=== PATIENT | female | born 1990 | race Caucasian/White ===

== ENCOUNTER 2017-08-22 21:19 | Emergency (ER) | END 2017-08-23 00:50 | disposition home or self-care (01) ==

== ENCOUNTER 2017-11-27 21:12 | Emergency (ER) | END 2017-11-28 02:18 | disposition home or self-care (01) ==

== ENCOUNTER 2018-01-09 09:38 | Emergency (ER) | END 2018-01-09 12:02 | disposition home or self-care (01) ==

== ENCOUNTER 2018-03-08 11:20 | Outpatient (CLI) | payer OTHER ==
[~2018-03-08] VITALS: Ht 160 cm; Wt 82.3 kg
[~2018-03-08 11:20] MED LIST: ACET500C5 PO; ALBU18HF INHALATION; BENZ200C68 PO; FAMO-96 PO; FERR27TA; ONDA4TAB14 PO; PRED20TA PO
[2018-03-08 11:34] VITALS: BP 123/79; PULSE 100; RESP 16; Ht 160 cm; Wt 82.3 kg
[2018-03-08] MEDS ORDERED: LACTATED RINGER'S 1,000 ML IV SCH (11:37)
[2018-03-08] MEDS ORDERED: ACETAMINOPHEN 500 MG TAB PO STA (12:56)
--- NOTE | 2018-03-08 15:20 | TRIAGE ---
OB Triage Datetime Report Generated by CPN: 03/08/2018 15:19 Datetime: 03/08/2018 14:57 Labor Evaluation Pattern: Normal: <= 5 Contractions in 10 Minutes Resting Tone [place]: Relaxed Contraction Comments: no uc Heart Rate FHR Baseline Rate: 135 Monitor Mode: External US Variability: Moderate 6-25 bpm Accelerations: 15X15 Decelerations: None Category: Category I Pain Assessment Pain Presence: None/Denies Pain Type: N/A Datetime: 03/08/2018 14:01 Labor Evaluation Pattern: Normal: <= 5 Contractions in 10 Minutes Resting Tone [place]: Relaxed Contraction Comments: no uc Heart Rate FHR Baseline Rate: 135 Monitor Mode: External US Variability: Moderate 6-25 bpm Accelerations: 15X15 Decelerations: None Category: Category I Datetime: 03/08/2018 13:29 Comments: pt. back to bed Datetime: 03/08/2018 13:00 Labor Evaluation Pattern: Normal: <= 5 Contractions in 10 Minutes Resting Tone [place]: Relaxed Contraction Comments: no uc Heart Rate FHR Baseline Rate: 140 Monitor Mode: External US Variability: Moderate 6-25 bpm Accelerations: 15X15 Decelerations: None Category: Category I Datetime: 03/08/2018 12:01 Labor Evaluation Pattern: Normal: <= 5 Contractions in 10 Minutes Resting Tone [place]: Relaxed Contraction Comments: no uc Heart Rate FHR Baseline Rate: 145 Monitor Mode: External US Variability: Moderate 6-25 bpm Decelerations: None Category: Category I Datetime: 03/08/2018 11:32 Assessment Type: Triage Maternal Assessment Level of Consciousness: Fully Conscious DTR's/Clonus: DTRs 2+; No Clonus Headache: Denies Blurred Vision: No Respiratory Effort: Unlabored; Regular Rhythm; Equal Expansion Breath Sounds, Left: Clear and Equal Breath Sounds, Right: Clear and Equal Nausea/Vomiting: Denies RUQ Epigastric Pain: Denies Lower Extremities Edema: None Degree: None Upper Extremities Edema: None Degree: None Facial Edema: None Fall Risk Assessment History of Falling: (0) No Secondary Diagnosis: (0) No Ambulatory Aid: (0) Bedrest/Nurse Assist IV Therapy: (0) No Gait: (0) Normal/Bedrest/Immobile Mental Status: (0) Oriented to Own Ability Fall Score: 0 Fall Risk Score Definition: No Risk: No action required Datetime: 03/08/2018 11:24 Time of Arrival: 03/08/2018 11:17 EGA: 26.3 Arrived By: Ambulatory Arrived From: Home Chief Complaint: To triage, c/o left side of headche and RLQ cramping since last night, pain level 4/10, also c/o dizziness and nausea Movement: Present Contractions: Denies/Absent Rupture of Membranes: Denies Vaginal Bleeding: None Vaginal Discharge: Denies Recent Sexual Intercouse: Denies Abdominal Trauma: Not Applicable Patient Complaints: Cramping; Nausea; Dizziness; Other Time Provider Notified: 03/08/2018 11:36 Provider Notified: olu
--- NOTE | 2018-03-08 16:43 | PN ---
Triage Information Date/Time March 08, 2018 Reason for visit: Left-sided headache, right lower abdominal pain, dizziness, nausea Weeks of Gestation 26 weeks and 3 days /Para 2 para 1 Diabetes: none Hypertention: none Additional information 27-year-old 2 para 1 with IUP at 26 weeks and 3 days presented with left-sided headache as well as right-sided lower abdominal pain, dizziness and nausea. She denies any leaking of fluid, vaginal bleeding decreased movement or uterine contractions. She reports had episodes of left-sided headache in the past but this time has been worsened. She denies any neurolo gical symptoms. She denies any right upper quadrant pain blurred vision or epigastric pain. She denies any lack of appetite, she denies any fever or chills. Objective Vital Signs Date Temp Pulse Resp B/P (MAP) Pulse Ox O2 O2 Flow FiO2 Time Delivery Rate 03/08/18 98.2 100 16 123/79 11:34 (94) Heart Rate: 130's Heart Rate Comments NST: Category 1 Exam Appearance: Alert and oriented x4 appears to be mild distress Abdomen: Soft, gravid, fundal height consider gestational age, no tenderness, no redness, no guarding no rigidity No evidence of acute abdomen. No CVA tenderness NST: Category 1 No contraction on the monitor Results/Medications Result Diagram: 03/08/18 1210 03/08/18 1327 Results 24 hrs Laboratory Tests Test 03/08/18 11:30 03/08/18 12:10 03/08/18 13:27 Urine Color YELLOW Urine Clarity CLEAR Urine pH 6.0 Urine Specific [place] 1.018 Urine Ketones NEGATIVE Urine Nitrite NEGATIVE Urine Bilirubin NEGATIVE Urine Urobilinogen NEGATIVE Urine Leukocyte Esterase NEGATIVE Urine Hemoglobin NEGATIVE Urine Glucose NEGATIVE Urine Total Protein NEGATIVE White Blood Count 10.3 Red Blood Count 3.67 L Hemoglobin 11.2 L Hematocrit 34.1 L Mean Corpuscular Volume 92.9 Mean Corpuscular Hemoglobin 30.5 Mean Corpuscular Hemoglobin Concent 32.8 Red Cell Distribution Width 13.2 Platelet Count 119 L Mean Platelet Volume 13.2 H Immature Granulocytes % 2.000 H Neutrophils % 78.7 H Lymphocytes % 7.4 L Monocytes % 7.7 Eosinophils % 3.9 Basophils % 0.3 Nucleated Red Blood Cells % 0.0 Immature Granulocytes # 0.210 H Neutrophils # 8.1 H Lymphocytes # 0.8 Monocytes # 0.8 Eosinophils # 0.4 Basophils # 0.0 Nucleated Red Blood Cells # 0.0 Sodium Level 137 Potassium Level 3.8 Chloride Level 108 Carbon Dioxide Level 23 Anion Gap 6 Blood Urea Nitrogen 10 Creatinine 0.43 L Est Glomerular Filtrat Rate mL/min > 60 Glucose Level 83 Calcium Level 9.4 Total Bilirubin 0.4 Direct Bilirubin 0.00 Indirect Bilirubin 0.4 Aspartate Amino Transf (AST/SGOT) 21 Alanine Aminotransferase (ALT/SGPT) 16 Alkaline Phosphatase 145 H Total Protein 6.9 Albumin 3.5 Globulin 3.40 H Albumin/Globulin Ratio 1.02 Imaging Results PROCEDURE: Obstetric ultrasound CLINICAL INDICATION: Pain TECHNIQUE: Multiple transverse and longitudinal grayscale images of the pelvis were obtained transabdominally and transvaginally.. COMPARISON: US 01/23/2018 FINDINGS: The cervix is closed with a length of 4.1 cm. There is a single live intrauterine gestation. Cardiac activity is present with 139 beats per minute. There is a vertex presentation. The placenta is posterior. There is no evidence for an abruption or placenta previa. MVP = 5.8 cm. RPTAT: AA IMPRESSION: Cervix length measures 4.1 cm. Disposition: Discharge Assessment/Plan IUP at 26 and 3 days Left-sided headache likely migraine headache. Resolved with thousand milligram of p.o. Tylenol and hydration No evidence of acute abdomen UA and CBC within normal limits PH panel negative. Throat blood pressure check did not show any evidence of hypertension Symptoms resolved with above management and treatment and patient denies any symptoms after observation prior to discharge home testing reassuring Patient advised to have a follow-up with her primary OB office within 72 hours after discharge from the hospital Strict labor precautions, preeclampsia precaution, kick count discussed. Signs and symptoms explained. All questions were answered to patient's best satisfaction. Patient verbalized understanding and agrees to comply with instructions. MIGDALIA SANCHEZ MD Mar 08, 2018 16:43
== END 2018-03-08 15:30 | disposition home or self-care (01) ==
LOC: OBT 11:20 → L-D 11:21 → OBT 15:30
PROVIDERS: ATTEND Obstetrics & Gynecology
DX: O26.892 Other specified pregnancy related conditions, second trimester (principal); R51 Headache; R10.9 Unspecified abdominal pain; R42 Dizziness and giddiness; Z3A.26 26 weeks gestation of pregnancy
CPT/HCPCS: 36415; 76815; 76817; 80053; 80076; 81003; 85025; 96360; 96361; J7120; Z7500; Z7610; G0463

== ENCOUNTER 2018-04-15 16:19 | Outpatient (CLI) | payer OTHER ==
[~2018-04-15] VITALS: Ht 160 cm; Wt 85.6 kg
[2018-04-15] MEDS ORDERED: PREN-93 PO (16:32)
[2018-04-15 16:33] VITALS: BP 123/70; PULSE 83; RESP 18; Ht 160 cm; Wt 85.6 kg
[2018-04-15] MEDS ORDERED: ACETAMINOPHEN 500 MG TAB PO STA (20:25)
--- NOTE | 2018-04-15 20:38 | PN ---
Triage Information Date/Time Apr 152018 Reason for visit: Uterine contractions Weeks of Gestation 31w 6d /Para 2/1 Diabetes: none Hypertention: none Additional information Pt was here this AM feeling the same way with UC's and was sent home. She comes back in with c/o pain 06/06. It is the same as this AM, not any worse. She says she does not feel it all the time but only when walking. Since she has been laying in the bed since arrival she has felt very comfortable. She takes Tylenol which helps. She does report good movement. No bleeding or leaking. PMHx: none. PSHx: x 1. All: PCN. Objective Vital Signs Date Temp Pulse Resp B/P (MAP) Pulse Ox O2 O2 Flow FiO2 Time Delivery Rate 04/15/18 98.2 83 18 123/70 Room Air 16:33 (87) Heart Rate: 130's Heart Rate Comments Accels to 170 bpm. No decels. Contractions: >10 Minutes Apart (2 UC's per hour, at most.) Exam Deferred. Results/Medications Result Diagram: 04/15/18 1655 Results 24 hrs Laboratory Tests Test 04/15/18 16:55 04/15/18 17:16 04/15/18 17:35 White Blood Count 12.7 #H Red Blood Count 3.79 L Hemoglobin 11.1 L Hematocrit 34.3 L Mean Corpuscular Volume 90.5 Mean Corpuscular Hemoglobin 29.3 Mean Corpuscular Hemoglobin Concent 32.4 Red Cell Distribution Width 13.8 Platelet Count 134 L Mean Platelet Volume 13.3 H Immature Granulocytes % 1.200 H Neutrophils % 81.6 H Lymphocytes % 7.7 L Monocytes % 7.5 Eosinophils % 1.7 Basophils % 0.3 Nucleated Red Blood Cells % 0.0 Immature Granulocytes # 0.150 H Neutrophils # 10.3 H Lymphocytes # 1.0 Monocytes # 1.0 H Eosinophils # 0.2 Basophils # 0.0 Nucleated Red Blood Cells # 0.0 Urine Color YELLOW Urine Clarity CLEAR Urine pH 6.0 Urine Specific [place] 1.021 Urine Ketones NEGATIVE Urine Nitrite NEGATIVE Urine Bilirubin NEGATIVE Urine Urobilinogen NEGATIVE Urine Leukocyte Esterase NEGATIVE Urine Hemoglobin NEGATIVE Urine Glucose NEGATIVE Urine Total Protein NEGATIVE Fibronectin NEGATIVE Medications Current Medications Acetaminophen (Tylenol Tab) 1,000 mg ONCE STAT PO ; Start 2/17/19 at 20:25; Stop 04/15/18 at 20:26; Status UNV Imaging Results BPP 10/04. JENS 15.8 cm. Cervical length 4 cm. EFW 1873 grams. Negative FFN. Disposition: Discharge Assessment/Plan A: IUP at 31w 6d. False labor. P: D/C home. Encouraged to go home and take a hot shower and some Tylenol and to relax. kick counts reviewed and PTL precautions reviewed. SALVATORE ESPARZA MD Apr 15, 2018 20:38
--- NOTE | 2018-04-15 23:33 | TRIAGE ---
OB Triage Datetime Report Generated by CPN: 04/15/2018 23:33 Datetime: 04/15/2018 20:22 Stage of : OB Triage Labor Evaluation Frequency: X0 Monitor Mode: External Duration (sec)2399: X0 Pattern: Normal: <= 5 Contractions in 10 Minutes Resting Tone [place]: Relaxed Heart Rate FHR Baseline Rate: 135 Monitor Mode: External US Variability: Moderate 6-25 bpm Accelerations: 15X15 Decelerations: None Category: Category I Datetime: 04/15/2018 20:20 Stage of : OB Triage Pain Assessment Pain Scale: 4 Pain Presence: Intermittent Pain Type: Cramping Pain Location: Abdomen Pain Relief Measures: Comfort Measures Datetime: 04/15/2018 19:30 Stage of : OB Triage Labor Evaluation Frequency: irregular Monitor Mode: External Duration (sec)2399: 30-40 Quality: Mild Pattern: Normal: <= 5 Contractions in 10 Minutes Resting Tone [place]: Relaxed Heart Rate FHR Baseline Rate: 135 Monitor Mode: External US Variability: Moderate 6-25 bpm Accelerations: 15X15 Decelerations: None Category: Category I Datetime: 04/15/2018 18:30 Stage of : OB Triage Maternal Assessment Level of Consciousness: Fully Conscious Labor Evaluation Frequency: 2UC/HR Monitor Mode: External Duration (sec)2399: 40-50 Quality: Mild Resting Tone [place]: Relaxed Heart Rate FHR Baseline Rate: 135 Monitor Mode: External US Variability: Moderate 6-25 bpm Accelerations: 15X15 Decelerations: None Category: Category I Pain Assessment Pain Scale: 0 Pain Goal: 3 Vaginal Exam Membrane Status: Intact Vaginal Bleeding: None Datetime: 04/15/2018 17:30 Stage of : OB Triage Maternal Assessment Level of Consciousness: Fully Conscious Labor Evaluation Frequency: 2UC/HR Monitor Mode: External Duration (sec)2399: 110 Quality: Mild Resting Tone [place]: Relaxed Heart Rate FHR Baseline Rate: 135 Monitor Mode: External US Variability: Moderate 6-25 bpm Accelerations: 15X15 Decelerations: None Category: Category I Pain Assessment Pain Scale: 0 Pain Goal: 3 Vaginal Exam Membrane Status: Intact Vaginal Bleeding: None Datetime: 04/15/2018 16:30 Assessment Type: Triage Maternal Assessment Level of Consciousness: Fully Conscious DTR's/Clonus: DTRs 2+; No Clonus Headache: Denies Blurred Vision: No Respiratory Effort: Unlabored; Regular Rhythm; Equal Expansion Breath Sounds, Left: Clear and Equal Breath Sounds, Right: Clear and Equal Nausea/Vomiting: Denies RUQ Epigastric Pain: Denies Lower Extremities Edema: None Degree: None Upper Extremities Edema: None Degree: None Facial Edema: None Fall Risk Assessment History of Falling: (0) No Secondary Diagnosis: (0) No Ambulatory Aid: (0) Bedrest/Nurse Assist IV Therapy: (0) No Gait: (0) Normal/Bedrest/Immobile Mental Status: (0) Oriented to Own Ability Fall Score: 0 Fall Risk Score Definition: No Risk: No action required Datetime: 04/15/2018 16:28 Time of Arrival: 04/15/2018 16:10 EGA: 31.6 Arrived By: Ambulatory Arrived From: Home Chief Complaint: PT. HERE C/O CRAMPING AND VAG. PRESSURE X 3 DAYS Movement: Present Contractions: Denies/Absent Rupture of Membranes: Denies Vaginal Bleeding: None Vaginal Discharge: Denies Recent Sexual Intercouse: Denies Abdominal Trauma: Not Applicable Patient Complaints: None Time Provider Notified: 04/15/2018 16:41 Provider Notified: DEJAH Initial Plan: CBC/UA/CVL/BPP/EFW Datetime: 04/15/2018 16:26 Monitor Mode: External Monitor Mode: External US Datetime: 03/08/2018 14:56 Pain Assessment Comments: pt. state "no more headache, no more cramping" Datetime: 03/08/2018 11:32 Fall Score: 0 Fall Risk Score Definition: No Risk: No action required Datetime: 03/08/2018 11:24 EGA: 26.3
== END 2018-04-15 20:35 | disposition home or self-care (01) ==
LOC: OBT 16:19 → L-D 16:20 → OBT 20:35
PROVIDERS: ATTEND Obstetrics & Gynecology
DX: O62.9 Abnormality of forces of labor, unspecified (principal); Z3A.31 31 weeks gestation of pregnancy
CPT/HCPCS: 76815; 76817; 76818; 81003; 82731; 85025; Z7500; Z7610; G0463

== ENCOUNTER 2018-05-16 22:50 | Inpatient (IN) | payer OTHER ==
[~2018-05-16] VITALS: Ht 160 cm; Wt 92.2 kg
[~2018-05-16 22:50] MED LIST changes: -ACET500C5 PO; -BENZ200C68 PO; -FAMO-96 PO; -FERR27TA; -ONDA4TAB14 PO; -PRED20TA PO; +PREN-93 PO
[2018-05-16] MEDS ORDERED: FERR134T PO (23:10)
[2018-05-16] MEDS ORDERED: BEN25 PO (23:10)
[2018-05-16] MEDS ORDERED: ACETAMINOPHEN 325 MG TAB PO PRN (23:30)
[2018-05-16] MEDS ORDERED: AL HYDROX/MG HYDROX/SIMETH 30 ML CUP PO PRN (23:30)
[2018-05-17] VITALS: BP 122/69; PULSE 76; RESP 18
--- NOTE | 2018-05-17 00:48 | HP ---
Date/Time of Note Date/Time of Note DATE: 05/17/18 TIME: 00:44 OB - History Hx of Present Free Text/Dictation May 17, 2018 : 2 Para: 1 Spontaneous : 0 Therapeutic : 0 Care: Good Care Other Concerns: 27-year-old with IUP at 36 weeks and [address] [facility] presented with complaint of swelling of lower extremity as well as itching of her hands and feet for the past 1/2 weeks. Patient reports she has some labs done through the clinic but the results were not available. Patient has been taking Benadryl for itching of palms and soles. She denies any leaking of fluid, vaginal bleeding or decreased movement. Denies any other complication during her course. Denies any headache, blurred vision, epigastric pain or right upper quadrant pain. Past Family/Social History * Past Medical, Surgical, Family and Obstetric Histories reviewed from chart. OB Admission Exam Vital Signs Vital Signs Vital Signs Date Temp Pulse Resp B/P (MAP) Pulse Ox O2 O2 Flow FiO2 Time Delivery Rate 05/17/18 98.2 76 18 122/69 Room Air 00:00 (86) Physical Exam HEENT: WNL Lungs: Clear Abdomen: WNL Extremities: Normal Reflexes: Normal Cervical Dilatation: None Effacement: 0% Station: -3 Membranes: Intact Heart Rate: 130's Accelerations: Accelerations Present Decelerations: No Decelerations Varibility: Moderate Contractions on Admission: None Last 72 hours Lab Results ROCEDURE: OB ultrasound for biophysical profile CLINICAL INDICATION: Pain. TECHNIQUE: Multiple sonographic images of the gravid uterus performed. The images were reviewed on a PACS workstation. COMPARISON: 04/15/2018 FINDINGS: A single live intrauterine is identified with heart rate of 152 bpm. Fetus is in a cephalic presentation. Placenta is located anterior. Biophysical profile: breathing movement = 2/2 tone = 2/2 motion = 2/2 JENS = 2/2 JENS = 9.9 cm. IMPRESSION: 1. Single live intrauterine gestation. 2. Biophysical profile = 8/8. 3. JENS = 9.9 cm. RPTAT: HMVK PROCEDURE: US OB CLINICAL INDICATION: . Pain. TECHNIQUE: Multiple transabdominal sonographic images of the pelvis and gravid uterus were obtained. The images were reviewed on a PACS workstation. COMPARISON: 04/15/2018 FINDINGS: Gestation: Single live intrauterine gestation. Cardiac activity: 141 beats per minute. Presentation: Vertex. Placenta: Location: Anterior. Appearance: No previa or abruption. Measurements: BPD = 9.2 cm, 37 weeks 1 day HC = 33 cm, 37 weeks 4 days AC = 34 point a cm, 38 weeks 5 days FL = 7.4 cm, 38 weeks 0 days Gestational Age: AUA estimated gestational age: 37 weeks 6 days LMP estimated gestational age: 37 weeks 2 days AUA estimated date of delivery: 05/31/2018 The EFW = 3441 g, 94th %ile based on LMP age. IMPRESSION: 1. Single live intrauterine gestation of 37 weeks 6 days by ultrasound criteria. 2. Estimated date of delivery of 05/31/2018. 3. No abnormality identified. OB Assessment/Plan Other Assessment: IUP at 36 weeks and 2 days Swelling of lower extremity. Blood pressure normal. Will monitor blood pressure closely, PIH panel requested Itching of the palms and soles for the past 1/2 weeks, cannot rule out cholestasis of Patient will be admitted to antepartum service Due to risk of cholestasis of , based on symptoms we will start the patient on ursodiol 300 mg p.o. 3 times daily after drawing the lab works Follow-up with LFT and bile acids Follow-up with labs tomorrow from the clinic Perinatology consultation Continuous monitoring Consider starting steroid, due to potential possibility of cholestasis of and delivery prior to 37 weeks Continuous monitoring blood pressure closely Plan of care discussed with the patient and with the RN MIGDALIA SANCHEZ MD May 17, 2018 00:48
[2018-05-17] MEDS: BETAMET NA PHOS/AC(6 MG/ML) 2 ML INJ SYG IM SCH (01:51)
[2018-05-17] MEDS ORDERED: ALBUTEROL HFA 8 GM INHALER INH PRN (02:00)
--- NOTE | 2018-05-17 02:16 | TRIAGE ---
OB Triage Datetime Report Generated by CPN: 05/17/2018 02:16 Datetime: 05/17/2018 00:25 Stage of : Antepartum Datetime: 05/17/2018 00:23 Time of Arrival: 05/17/2018 00:15 EGA: 36.3 Arrived By: Wheelchair Arrived From: Emergency Dept Datetime: 05/17/2018 00:20 Stage of : OB Triage Monitor Mode: External Quality: Mild Pattern: Normal: <= 5 Contractions in 10 Minutes Resting Tone [place]: Relaxed Heart Rate FHR Baseline Rate: 135 Monitor Mode: External US FHR Baseline Changes: No Baseline Change Variability: Moderate 6-25 bpm Accelerations: 15X15 Decelerations: None Category: Category I Datetime: 05/17/2018 00:15 Assessment Type: Admission Assessment Time of Arrival: 05/16/2018 22:45 EGA: 36.2 Arrived By: Ambulatory Arrived From: Home Chief Complaint: hxc/s x1 c/o "feet so swollen the are going to split" and itching in feet and hands x 2 1/2 wks Movement: Present Contractions: Occasional Vaginal Bleeding: None Patient Complaints: Dependent Edema Time Provider Notified: 05/16/2018 22:55 Provider Notified: Dr Alicea Maternal Assessment Level of Consciousness: Fully Conscious DTR's/Clonus: DTRs 2+; No Clonus Headache: Denies Blurred Vision: No Respiratory Effort: Unlabored; Regular Rhythm; Equal Expansion Breath Sounds, Left: Clear and Equal Breath Sounds, Right: Clear and Equal Nausea/Vomiting: Denies RUQ Epigastric Pain: Denies Lower Extremities Edema: Bilateral Lower Extremities Degree: 2+ Upper Extremities Edema: None Degree: None Facial Edema: None Fall Risk Assessment History of Falling: (0) No Secondary Diagnosis: (0) No Ambulatory Aid: (0) Bedrest/Nurse Assist IV Therapy: (0) No Gait: (0) Normal/Bedrest/Immobile Mental Status: (0) Oriented to Own Ability Fall Score: 0 Fall Risk Score Definition: No Risk: No action required Labor Evaluation Frequency: 2-4 Duration (sec)2399: 40-100 Resting Tone [place]: Relaxed Heart Rate FHR Baseline Rate: 135 Variability: Moderate 6-25 bpm Accelerations: Prolonged Decelerations: None Category: Category I Pain Assessment Pain Scale: 6 Pain Presence: Intermittent Pain Type: Contraction Pain Location: Abdomen Pain Goal: 0 Datetime: 05/16/2018 23:46 Stage of : OB Triage Monitor Mode: External Quality: Mild Resting Tone [place]: Relaxed Monitor Mode: External US Datetime: 05/16/2018 23:20 Stage of : OB Triage Maternal Assessment Level of Consciousness: Fully Conscious DTR's/Clonus: DTRs 2+; No Clonus Headache: Denies Blurred Vision: No Respiratory Effort: Unlabored Nausea/Vomiting: Denies RUQ Epigastric Pain: Denies Facial Edema: None Monitor Mode: External Quality: Mild Resting Tone [place]: Relaxed Heart Rate FHR Baseline Rate: 145 Monitor Mode: External US Pain Assessment Pain Scale: 5 Pain Presence: Constant Pain Type: Pressure; Ache Pain Location: Right Leg; Left Leg; Right Ankle; Left Ankle; Right Foot; Left Foot Datetime: 04/15/2018 16:30 Fall Score: 0 Fall Risk Score Definition: No Risk: No action required Datetime: 04/15/2018 16:28 EGA: 31.6 Datetime: 03/08/2018 11:32 Fall Score: 0 Fall Risk Score Definition: No Risk: No action required Datetime: 03/08/2018 11:24 EGA: 26.3
[2018-05-17] MEDS: URSODIOL 300 MG CAP PO SCH ×3 (08:12→21:11)
[2018-05-17] MEDS: PRENATAL VITAMIN PO SCH (08:12)
[2018-05-17] MEDS: FERROUS SULFATE (EC) 325 MG TAB PO SCH (08:12)
[2018-05-18] MEDS: BETAMET NA PHOS/AC(6 MG/ML) 2 ML INJ SYG IM SCH (01:10)
[2018-05-18] MEDS: URSODIOL 300 MG CAP PO SCH ×2 (09:17→17:01)
[2018-05-18] MEDS: FERROUS SULFATE (EC) 325 MG TAB PO SCH (09:17)
[2018-05-18] MEDS: PRENATAL VITAMIN PO SCH (09:17)
[2018-05-18] MEDS ORDERED: OXYTOCIN 30 UNITS/LR 500 ML IV SCH (19:30)
[2018-05-18] MEDS ORDERED: METHYLERGONOVINE 0.2 MG INJ IM PRN (19:30)
[2018-05-18] MEDS ORDERED: CLINDAMYCIN 900 MG/D5W (PMX) 50 ML IVPB SCH (19:30)
[2018-05-18] MEDS ORDERED: OXYTOCIN 30 UNITS/LR 500 ML IV PRN (19:30)
[2018-05-18] MEDS ORDERED: CARBOPROST 250 MCG INJ IM PRN (19:30)
[2018-05-18] MEDS ORDERED: MISOPROSTOL 200 MCG TAB PR PRN (19:30)
[2018-05-19] MEDS: URSODIOL 300 MG CAP PO SCH ×3 (00:45→13:06)
[2018-05-19] MEDS: LACTATED RINGER'S 1,000 ML IV SCH ×2 (04:46→12:48)
[2018-05-19] MEDS ORDERED: morphine SULFATE/PF (10 MG/10 ML) INJ ONE (07:30)
[2018-05-19] MEDS ORDERED: MIDAZOLAM 1 MG/ML 2 ML INJ ONE ×3 (07:45)
[2018-05-19] MEDS ORDERED: ONDANSETRON 4 MG INJ ONE (07:47)
[2018-05-19] MEDS ORDERED: METOCLOPRAMIDE 10 MG INJ ONE (07:51)
[2018-05-19] MEDS ORDERED: OXYTOCIN 10 UNIT INJ ONE (07:51)
[2018-05-19] MEDS ORDERED: LACTATED RINGER'S 1,000 ML IV ONE (08:05)
--- NOTE | 2018-05-19 08:11 | OPR ---
Operative Report Planned Procedure Procedure date May 19, 2018 Procedure(s) repeat c/s Performed by see signature line Entertainment Agent: SAMIA TAYLOR MD Pre-procedure diagnosis repeat c/s for cholecystitis of [id number] Anesthesia Type: [id number] spinal Post-Procedure Post-procedure diagnosis same as pre op Findings Live Baby [], Apgars [] and [], weight [], position [], [] presentation []cord. Estimated Blood Loss: 600 - 700 mls Specimen(s) none Grafts/Implant(s) none Complication(s) none Pt Condition post procedure: stable Disposition: PACU Procedure Description Under satisfactory [spinal ] anesthesia, the patient was prepped and draped and placed in a supine position, tilted to the left. Pfannenstiel incision was made, carried through the subcutaneous tissue. Bleeders brought under control with electrocautery. Fascia incised to the length of the incision. Rectus muscles from the fascia, divided midline. Peritoneum exposed, entered through a transverse incision. Exploration of abdomen revealed gravid uterus. Bladder flap was developed. Transverse incision was made in the lower segment of the uterus. Amniotic sac ruptured. clear[] amniotic fluid noted. [] Nasal oropharyngeal suction was performed. The baby was handed to the team for immediate attention. The placenta was delivered manually intact. Uterine cavity was cleaned with wet sponge and drainage established. Uterus closed in 2 layers using [] in continuous fashion. Peritoneal cavity irrigated with warm saline. Sponge, needle and instrument count reported to be correct. Abdominal peritoneum closed with [one monocryl] continuously. Rectus muscle approximated with []. Fascia closed with one monocryl[], and skin closed with amalia. Estimated blood loss [700]mL. JUDI POND MD May 19, 2018 08:11
--- NOTE | 2018-05-19 08:13 | PREAC ---
Date/Time of Note Date/Time of Note DATE: 05/19/18 TIME: 08:08 Anesthesia Eval and Record Evaluation Time Pre-Procedure Interview DATE: 05/19/18 TIME: 07:15 Age 27 Sex female NPO: 8 hrs Preoperative diagnosis iup @ 36.5 wks., , cholestasis of , prev. c/s, asthma, contractions Planned procedure repeat c/s Past Medical History Past Medical History: Includes Pulm: Asthma GI: Other (cholestatsis) : : (2), Para: (1), Gestational age: (36.5 wks.) Surgery & Anesthesia Issues No known issue Meds Anticoagulation: No Beta Brenda within 24 hr: No Reason Beta Brenda not given: Pt. not on B-Brenda Active Scripts Albuterol Sulfate* (Ventolin HFA*) 18 Gm Hfa.aer.ad, 2 PUFF INHALATION Q4H, #1 INHALER Prov:JOSÉ MIGUEL DENSON PA-C 08/23/17 Reported Medications Diphenhydramine Hcl* (Benadryl*) 25 Mg Cap, 25 MG PO Q6H PRN for ITCHING, CAP 05/16/18 Ferrous Sulfate (Iron) 134 Mg Tablet, 134 MG PO DAILY, TAB 05/16/18 Vit No.124/Iron/FA ( Vitamin Tablet) 1 Each Tablet, 1 EACH PO DAILY, TAB 04/15/18 Current Medications Prenat Multivit/ Contour Sander/Iron/Folic Ac () 1 tab DAILY PO Last administered on 05/18/18at 09:17; Admin Dose 1 TAB; Start 05/17/18 at 09:00 Ferrous Sulfate (Ferrous Sulfate (Ec)) 325 mg DAILY PO Last administered on 05/18/18at 09:17; Admin Dose 325 MG; Start 05/17/18 at 09:00 Acetaminophen (Tylenol Tab) 650 mg Q4H PRN PO .PAIN OR TEMP; Start 05/16/18 at 23:30 Al Hydrox/Mg Hydrox/Simethicone (Mag-Al Plus) 30 ml Q6H PRN PO .GI UPSET; S tart 05/16/18 at 23:30 Ursodiol (Actigall) 300 mg TID PO Last administered on 05/19/18at 00:45; Admin Dose 300 MG; Start 05/17/18 at 09:00 Albuterol (Ventolin Hfa) 2 puff Q4H RESP THERAPY PRN INH SHORTNESS OF BREATH Last administered on 05/17/18at 01:50; Admin Dose 2 PUFF; Start 05/17/18 at 02:00 Lactated Ringer's 1,000 ml @ 75 mls/hr [id number] IV Last administered on 05/19/18at 04:46; Admin Dose 75 MLS/HR; Start 05/18/18 at 19:30 Clindamycin HCl/ Dextrose 50 ml @ 50 mls/hr ONCE IVPB ; Start 05/18/18 at 19:30 Oxytocin/Lactated Ringer's 500 ml @ 125 mls/hr POST IV ; Start 05/18/18 at 19:30 Oxytocin/Lactated Ringer's 500 ml @ 0 mls/hr ONCE PRN IV .VAGINAL BLEEDING; Start 05/18/18 at 19:30 Methylergonovine Maleate (Methergine) 0.2 mg ONCE PRN IM .VAGINAL BLEEDING; Start 05/18/18 at 19:30 Carboprost Tromethamine (Hemabate) 250 mcg ONCE PRN IM .VAGINAL BLEEDING; Start 05/18/18 at 19:30 Misoprostol (Cytotec) 1,000 mcg ONCE PRN TX .VAGINAL BLEEDING; Start 05/18/18 at 19:30 Meds reviewed: Yes Allergies Coded Allergies: Penicillins (Verified Allergy, Intermediate, SOB/HIVES, 05/16/18) Allergies Reviewed: Yes Labs/Studies Labs Reviewed: Reviewed by anesthesiologist Result Diagram: 05/19/18 0523 05/17/18 0026 Laboratory Tests 05/19/18 05:23 test: Positive Pre-procedure Exam Last vitals Vital Signs Date Temp Pulse Resp B/P (MAP) Pulse Ox O2 O2 Flow FiO2 Time Delivery Rate 05/17/18 98.2 76 18 122/69 Room Air 00:00 (86) Airway: Adequate mouth opening, Adequate thyromental dist Mallampati: Mallampati II Teeth: Normal Lung: Normal Heart: Normal ASA Physical Status ASA physical status: 2 Emergency: E Planned Anesthetic General/MAC: TIVA Neuraxial: Spinal Planned Pain Management Sub-arachniod narcotics, Local by surgeon Pre-operative Attestations Prior to commencing anesthesia and surgery, the patient was re-evaluated, there was verification of: *The patient's identity *The results of appropriate recent lab work and preoperative vital signs *The above evaluation not changing prior to induction *Anesthetic plan, risk benefits, alternative and complications discussed with patient/family; questions answered; patient/family understands, accepts and wishes to proceed. Adult Basic Education Teacher used KENA DELA CRUZ MD May 19, 2018 08:13
--- NOTE | 2018-05-19 08:14 | PAC ---
Date/Time of Note Date/Time of Note DATE: 05/19/18 TIME: 10:00 Post-Anesthesia Notes Post-Anesthesia Note Last documented vital signs Vital Signs Date Temp Pulse Resp B/P (MAP) Pulse Ox O2 O2 Flow FiO2 Time Delivery Rate 05/17/18 98.2 76 18 122/69 Room Air 00:00 (86) Activity: WNL Respiratory function: WNL Cardiovascular function: WNL Mental status: Baseline Pain reasonably controlled: Yes Hydration appropriate: Yes Nausea/Vomiting absent: Yes KENA DELA CRUZ MD May 19, 2018 08:13
--- NOTE | 2018-05-19 08:16 | OPPN ---
Date/Time of Note Date/Time of Note DATE: 05/20/18 TIME: 00:30 Anesthesia Follow up Anesthesia Follow up Last documented vital signs Vital Signs Date Temp Pulse Resp B/P (MAP) Pulse Ox O2 O2 Flow FiO2 Time Delivery Rate 05/17/18 98.2 76 18 122/69 Room Air 00:00 (86) Respiratory function: WNL Cardiovascular function: WNL Comments S: pt. is pod #1. min. bt pain. min. need for bt pain meds ie. nsaids, opiates. ambulating. min. n/v. O: vss, afeb. A: min. bt pain sec. to it MSO4. P: complications. KENA DELA CRUZ MD May 19, 2018 08:16
[2018-05-19] MEDS ORDERED: ONDANSETRON 4 MG INJ IV PRN (08:30)
[2018-05-19] MEDS ORDERED: HYDROmorphONE 0.5 MG/0.5 ML SYG IV PRN ×2 (08:30)
[2018-05-19] MEDS ORDERED: MIDAZOLAM 1 MG/ML 2 ML INJ IV PRN (08:30)
[2018-05-19] MEDS ORDERED: MEPERIDINE 25 MG INJ IV PRN (08:30)
[2018-05-19] MEDS ORDERED: ONDANSETRON 4 MG INJ IV ONE (08:30)
[2018-05-19] MEDS ORDERED: NALOXONE (0.4 MG/ML) INJ IV PRN (08:30)
[2018-05-19] MEDS ORDERED: NALBUPHINE HCL (10 MG/1 ML) INJ IV PRN (08:30)
[2018-05-19] MEDS ORDERED: DIPHENHYDRAMINE 50 MG INJ IV PRN ×2 (08:30)
[2018-05-19] MEDS ORDERED: ZOLPIDEM 5 MG TAB PO PRN (08:30)
[2018-05-19] MEDS: PRENATAL VITAMIN PO SCH (09:00)
[2018-05-19] MEDS: FERROUS SULFATE (EC) 325 MG TAB PO SCH (09:00)
[2018-05-19] MEDS: KETOROLAC 30 MG INJ IV PRN ×3 (10:22→22:53)
[2018-05-19 10:40] VITALS: BP 114/69; PULSE 63; RESP 18
[2018-05-19] MEDS ORDERED: LACTATED RINGER'S 1,000 ML IV SCH (13:35)
[2018-05-19] MEDS ORDERED: OXYTOCIN 30 UNITS/LR 500 ML IV SCH (13:35)
[2018-05-19] MEDS: IBUPROFEN 800 MG TAB PO SCH ×2 (13:50→22:00)
[2018-05-19] MEDS ORDERED: NACL 0.9% 3 ML SYG IV SCH (14:00)
[2018-05-19] MEDS ORDERED: METHYLERGONOVINE 0.2 MG INJ IM PRN (14:00)
[2018-05-19] MEDS ORDERED: NA PHOSPHATE/BIPHOS 133 ML ENEMA PR PRN (14:00)
[2018-05-19] MEDS ORDERED: LANOLIN HPA 1 PKT TOP PRN (14:00)
[2018-05-19] MEDS ORDERED: MISOPROSTOL 200 MCG TAB PR PRN (14:00)
[2018-05-19] MEDS ORDERED: OXYTOCIN 30 UNITS/LR 500 ML IV PRN (14:00)
[2018-05-19] MEDS ORDERED: CARBOPROST 250 MCG INJ IM PRN (14:00)
[2018-05-19 16:00] VITALS: BP 109/63; PULSE 77; RESP 20
[2018-05-19 19:35] VITALS: BP 111/61; PULSE 89; RESP 16
[2018-05-20] VITALS: BP 109/58; PULSE 77; RESP 16
[2018-05-20 04:15] VITALS: BP 100/57; PULSE 78; RESP 18
[2018-05-20 08:00] VITALS: BP 113/57; PULSE 84; RESP 16
[2018-05-20] MEDS: IBUPROFEN 800 MG TAB PO SCH ×3 (08:52→21:48)
[2018-05-20] MEDS: FERROUS SULFATE (EC) 325 MG TAB PO SCH (08:53)
[2018-05-20] MEDS: HYDROCODONE/APAP (5/325) TAB PO PRN ×3 (08:53→18:54)
--- NOTE | 2018-05-20 13:09 | QN ---
Documentation Comment POD1 is stable afebrile tolerates diet No VB +Flatus +Voids VS stable Gen NAD Abd soft NT ND Incision intact Gentalia No blood at perineum -->Discharge plan tomorrow -->Ambulation -->Precautions discussed MIRANDA FISHER M.D. May 20, 2018 13:09
[2018-05-20 16:00] VITALS: BP 111/70; PULSE 74; RESP 18
[2018-05-20 19:40] VITALS: BP 113/64; PULSE 82; RESP 18
[2018-05-21 04:10] VITALS: BP 115/57; PULSE 81; RESP 18
[2018-05-21] MEDS: IBUPROFEN 800 MG TAB PO SCH ×3 (05:42→22:13)
[2018-05-21 08:12] VITALS: BP 130/59; PULSE 74; RESP 18
--- NOTE | 2018-05-21 08:16 | DS ---
Date/Time of Note Date/Time of Note DATE: 05/21/18 TIME: 08:15 Discharge Summary Admission/Discharge Info Admit Date/Time May 16, 2018 at 22:55 Discharge Date/Time Discharge Diagnosis cholecystitis of and previous c/s Patient Condition: Stable Hospital Course unremarkable Home Meds Active Scripts Albuterol Sulfate* (Ventolin HFA*) 18 Gm Hfa.aer.ad, 2 PUFF INHALATION Q4H, #1 INHALER Prov:JOSÉ MIGUEL DENSON PA-C 08/23/17 Reported Medications Diphenhydramine Hcl* (Benadryl*) 25 Mg Cap, 25 MG PO Q6H PRN for ITCHING, CAP 05/16/18 Ferrous Sulfate (Iron) 134 Mg Tablet, 134 MG PO DAILY, TAB 05/16/18 Vit No.124/Iron/FA ( Vitamin Tablet) 1 Each Tablet, 1 EACH PO DAILY, TAB 04/15/18 Primary Care Provider Not On Staff Doctor JUDI POND MD May 21, 2018 08:16
[2018-05-21] MEDS: FERROUS SULFATE (EC) 325 MG TAB PO SCH (09:06)
[2018-05-21] MEDS: HYDROCODONE/APAP (5/325) TAB PO PRN ×2 (09:13→23:46)
[2018-05-21 16:02] VITALS: BP 124/64; RESP 18
[2018-05-21 19:55] VITALS: BP 123/80; PULSE 80; RESP 19
[2018-05-22 03:55] VITALS: BP 123/58; PULSE 80; RESP 19
[2018-05-22] MEDS: IBUPROFEN 800 MG TAB PO SCH ×2 (05:43→13:46)
[2018-05-22 08:00] VITALS: BP 129/81; RESP 18
[2018-05-22] MEDS ORDERED: DIPHTH/TET/ACEL PERTUSS (ADULT) 0.5 ML VIAL IM* ONE (09:00)
[2018-05-22] MEDS ORDERED: MEASLES,MUMPS,RUBELLA VACCINE INJ SC* ONE (09:00)
[2018-05-22] MEDS: FERROUS SULFATE (EC) 325 MG TAB PO SCH (09:14)
[2018-05-22] MEDS: HYDROCODONE/APAP (5/325) TAB PO PRN (09:15)
--- NOTE | 2018-05-22 12:12 | QN ---
Documentation Comment doing well vss abd soft d/c home today JUDI POND MD May 22, 2018 12:12
--- NOTE | 2018-05-23 16:00 | DELSUM ---
Delivery Summary A-C Datetime Report Generated by CPN: 05/23/2018 16:00 DELIVERY PERSONNEL Director Statistical Programming: Duvo, Kiersten MATERNAL INFORMATION Delivery Anesthesia: Spinal Medications in Delivery: SEE ANESTHESIA RECORD Delivery QBL (ml): 600 Placenta Cultured: No Maternal Complications: Other Other Maternal Complications: CHOLESTASIS RN Comments: R C/S FOR CHOLESTASIS 36.5 WKS LABOR SUMMARY EDC: 06/11/2018 00:00 No. Babies in Womb: 1 Attempted: No Labor Anesthesia: None LABOR INFORMATION Reason for Induction: Not Applicable Oxytocin: N/A Group B Beta Strep: Not Done Antibiotics # of Doses: 1 Antibiotics Time of Last Dose: 05/19/2018 07:40 Steroids Given: Full Course Reason Steroids Not Administered: Not Applicable MEMBRANES Membranes Rupture Method: Artificial Rupture of Membranes: 05/19/2018 07:52 Length of Rupture (hr): 0.02 Amniotic Fluid Color: Clear Amniotic Fluid Amount: Moderate Amniotic Fluid Odor: None STAGES OF LABOR Stage 3 hr: 0 Stage 3 min: 1 CSECTION DELIVERY Primary Indication: Other Other Primary Indication: CHOLESTASIS Secondary Indication: N/A CSection Urgency: Non Elective CSection Incidence: Repeat Labor: No Labor Elective: N/A CSection Incision: Lower Uterine Transverse BABY A INFORMATION Infant Delivery Date/Time: 05/19/2018 07:53 Method of Delivery: Born in Route : No : N/A Forceps: N/A Vacuum Extraction: N/A Shoulder Dystocia : No SHOULDER DYSTOCIA BABY A Delivery Date/Time: 05/19/2018 07:53 PRESENTATION/POSITION BABY A Presentation: Cephalic Cephalic Presentation: Vertex Vertex Position: Left Occipital Anterior Breech Presentation: N/A PLACENTA INFORMATION BABY A Placenta Delivery Time : 05/19/2018 07:54 Placenta Method of Delivery: Manual Removal Placenta Status: Delivered SCORES BABY A Heart Rate 1 min: >100 bpm Resp Effort 1 min: Good Cry Reflex Irritability 1 min: Cough/Sneeze/Pulls Away Muscle Tone 1 min: Active Motion Color 1 min: Body [place], Extremit Blue Resuscitation Effort 1 min: Tactile Stimulation SCORE 1 MIN: 9 Heart Rate 5 min: >100 bpm Resp Effort 5 min: Good Cry Reflex Irritability 5 min: Cough/Sneeze/Pulls Away Muscle Tone 5 min: Active Motion Color 5 min: Body [place], Extremit Blue Resuscitation Effort 5 min: Tactile Stimulation SCORE 5 MIN: 9 INFANT INFORMATION BABY A Gestational Age at Delivery: 36.5 Gestational Status: Late - 34- 36.6 Weeks Outcome : Liveborn Infant Condition : Stable Infant Sex: Male IDENTIFICATION/MEDS BABY A ID Band Number: [id number] ID Band Location: Right Leg; Left Arm Sensor Applied: Yes Sensor Number: [id number] Sensor Location : Cord Clamp Vitamin K Given : Not Given Erythromycin Given: Not Given WEIGHT/LENGTH BABY A Infant Birthweight (gm): 3380 Weight (lb): 7 Weight (oz): 7 Length (in): 19.50 Infant Length (cm): 49.53 CORD INFORMATION BABY A No. Cord Vessels: 3 Nuchal Cord : N/A Cord Blood Taken: Yes Infant Suction: Mouth; Nose ASSESSMENT BABY A Infant Complications: None Physical Findings at Delivery: Within Normal Limits Infant Respirations: Appears Normal Primary Care Coordinator/ALS Called : Yes Care By: Ashwin QUEVEDO RN Transferred To: Remains with Mother
== END 2018-05-22 16:00 | disposition home or self-care (01) | DRG 788 ==
LOC: OBT 22:50 → L-D 22:51 → OBT 22:55 → L-D 05-17 05:43 → PP1 05-19 10:38
PROVIDERS: ADMIT Obstetrics & Gynecology; ATTEND Obstetrics & Gynecology
PROC: 10D00Z1 Extraction of Products of Conception, Low, Open Approach (ICD-10-PCS; principal; 2018-05-19 07:30)
DX: O99.62 Diseases of the digestive system complicating childbirth (principal); K81.9 Cholecystitis, unspecified; Z3A.36 36 weeks gestation of pregnancy; Z37.0 Single live birth; O34.219 Maternal care for unspecified type scar from previous cesarean delivery
CPT/HCPCS: 76815; 76818; 80053; 80076; 81003; 83789; 84560; 85025; 85610; 85730; 86592; 86850; 86900; 86901; 87340; 90686; 99464; G0463; J0702; J1885; J2210; J2250; J2274; J2405; J2590; J2765; J7120